=== PATIENT | female | born 1945 | race Caucasian/White ===

== ENCOUNTER 2020-10-10 04:08 | Inpatient (IN) | payer MEDICARE, OTHER, SELFPAY ==
[2020-10-10] VITALS (17 sets, daily range): BP systolic 104–156; BP diastolic 43–82; PULSE 60–90; RESP 15–20; TEMP 36.7–37.1; O2SAT 95–97; BMI 26.7
--- NOTE | ~2020-10-10 | CT_ITS ---
EXAMINATION: CT ABDOMEN AND PELVIS WITHOUT CONTRAST CLINICAL INFORMATION: Diffuse abdominal pain COMPARISON: None TECHNIQUE: Multidetector volumetric imaging was performed from the superior aspect of the liver through the pubic symphysis. Sagittal and coronal reformatted images were obtained on the technologist's workstation. This CT examination was performed using dose optimization techniques as appropriate, variously including the following: *Automated exposure control *Adjustment of mA and/or kV according to patient size (this includes techniques or standardized protocols for targeted exams where dose is matched to indication/reason for exam; i.e. extremities or head) *Use of iterative reconstruction technique DLP: 485 mGy-cm FINDINGS: LUNG BASES: The visualized lung bases are unremarkable. LIVER, GALLBLADDER, AND BILIARY TREE: The liver is normal in size, shape, and attenuation. No focal hepatic lesion or biliary ductal dilatation is present. The gallbladder is unremarkable with no evidence of radiopaque gallstones, gallbladder wall thickening, or obvious pericholecystic inflammatory changes. PANCREAS: Unremarkable. SPLEEN: Unremarkable. ADRENAL GLANDS: Unremarkable. KIDNEYS AND URETERS: The kidneys are normal in size, shape, and attenuation. No hydronephrosis, hydroureter, or calculi seen. No perinephric stranding. BLADDER: Unremarkable. GASTROINTESTINAL TRACT: The stomach is unremarkable. There is a portion of small bowel which is dilated mildly with fluid-filled appearance. This leads to an area of fecalization in the right lower quadrant transitioning at the site of the inguinal hernia. Much of the colon is decompressed. ABDOMINAL WALL: Right inguinal region hernia containing small bowel which appears obstructive. LYMPH NODES: Normal. VASCULAR: Normal caliber aorta with mild atherosclerotic calcification. PELVIC VISCERA: Calcifications at the uterine fundus likely associated with fibroids. No adnexal mass. OSSEOUS STRUCTURES: No acute or suspicious osseous abnormality. Mild degenerative changes throughout the spine. CT/CT abdomen pelvis wo con IMPRESSION: Small bowel obstruction with lead point involving the right inguinal hernia. Decompression of the colon.
--- NOTE | 2020-10-10 05:15 | ECG_ITS ---
Test Reason : ABD PAIN Blood Pressure : / mmHG Vent. Rate : 073 BPM Atrial Rate : 073 BPM P-R Int : 150 ms QRS Dur : 082 ms QT Int : 396 ms P-R-T Axes : 061 026 037 degrees QTc Int : 436 ms Normal sinus rhythm Normal ECG When compared with ECG of 25-DEC-2015 06:15, Premature atrial complexes are no longer Present Nonspecific T wave abnormality, improved in Inferior leads Nonspecific T wave abnormality, improved in Anterolateral leads Referred By: Peyton Fuentes Electronically Signed By:Zenon Paige
--- NOTE | 2020-10-10 05:16 | ED.ABDPAIN ---
HPI - Abdominal Pain General Chief Complaint: Abdominal Pain Stated Complaint: abd pain Time Seen by Provider: 10/10/20 05:06 Source: patient Mode of arrival: ambulatory Limitations: no limitations History of Present Illness HPI narrative: Patient comes to the emergency room complaining of abdominal pain. Patient states that around 12-13 hours ago, she started complaining of diffuse abdominal pain. Patient states the pain radiates throughout the abdomen. She also noticed that she has not passed gas for several hours. Patient denies vomiting or diarrhea. Patient states that around Chelle time, she noticed that she had a right inguinal hernia. Patient states most of the time she is able to reduce it. However, since yesterday, patient has been unable to reduce it. Patient states that the pain is intense, but does feel uncomfortable. MD elicited complaint: abdominal pain Related Data Home Medications Medication Instructions Recorded Confirmed clonazepam 1 tab PO BID PRN 10/10/20 10/10/20 dorzolamide-timolol 1 drp OPHTHALMIC (EYE) BID 10/10/20 10/10/20 lovastatin 1 tab PO DAILY 10/10/20 10/10/20 omeprazole 1 cap PO DAILY 10/10/20 10/10/20 prednisolone acetate 1 drp QID 10/10/20 10/10/20 Allergies Allergy/AdvReac Type Severity Reaction Status Date / Time nitroglycerin [NITROGLYCERIN] Allergy Severe SEVERE Verified 10/10/20 06:30 BRADYCARDIA/HYPOTENSION iodine Allergy Unknown Hypotension Verified 10/10/20 06:30 Review of Systems Review of Systems Constitutional : No Weight loss, No Fever, No Chills, No Night Sweats, No Fatigue, No Malaise ENT/Mouth : No Hearing loss, No Ear Pain, No Nasal Congestion, No Sinus Pain, No Hoarseness, No sore throat, No Rhinorrhea, No Swallowing Difficulty Eyes: No Eye Pain, No Swelling, No Redness, No Foreign Body, No Discharge, No Vision Changes Cardiovascular : No Chest Pain, No SOB, No Dyspnea on Exertion, No Orthopnea, No Edema, No Palpitations Respiratory : No Cough, No Sputum, No Wheezing, No Smoke Exposure, No Dyspnea Gastrointestinal : No Nausea, No Vomiting, No Diarrhea, No Constipation, complaining of diffuse abdominal pain, No Hematochezia, No Melena, + obstipation Genitourinary : no irregular bleeding, No Dysuria, No Urinary Frequency, No Hematuria, No Urinary Incontinence, No Urgency, No Flank Pain, No Urinary Flow Changes, No Hesitancy Musculoskeletal : No joint pain, No Myalgias, No Joint Swelling Skin : No Skin Lesions, No rash Neuro : No Weakness, No Numbness, No Paresthesias, No Loss of Consciousness, No Dizziness, No Headache Psych : No Anxiety/Panic, No Depression, No SI/HI/AH/VH, No Social Issues, Heme/Lymph: No Bruising, No Bleeding,No Lymphadenopathy Endocrine : No Polyuria, No Polydipsia, No Temperature Intolerance Physical Exam Vital Signs: Vital Signs: Last Vital Signs Temp 98.4 F 10/10/20 05:33 Pulse 60 10/10/20 06:00 Resp 16 10/10/20 06:30 BP 120/63 10/10/20 06:00 Pulse Ox 96 10/10/20 06:00 Body Mass Index 26.7 Appearance: Alert. Oriented X3. No acute distress. Eyes: Pupils equal, round and reactive to light. ENT: Pharynx normal. Neck: Normal inspection. Neck supple. No lymph nodes noted. No crepitus CVS: Normal heart rate and rhythm. Pulses normal. Normal S1 and S2 Respiratory: No respiratory distress. Breath sounds normal. No Wheezing. No rales Abdomen: Soft , no rigidity, pain to palpation in the right inguinal area, palpable mass/fullness present in the right suprapubic/right inguinal area, mild to moderate discomfort with palpation, not reducible Skin: Skin warm and dry. Normal skin color. Normal skin turgor. Extremities: No lower extremity edema. No lower extremity edema. No Lacerations. No Rash Neuro: Oriented X 3. No motor deficit. No sensory deficit. Moving all extermities. No slurred speech. Course Course Course Narrative: Discussed the CT scan with the patient, she does have a small bowel obstruction involving the right inguinal hernia. I discussed with the patient that we will consult Dr. Kendrick from surgery. Patient will be admitted. MDM - Abdominal Pain MDM Narrative Medical decision making narrative: Patient had a vasovagal episode, blood pressure dropped to the 60s systolic when patient was getting blood work done. Patient recuperated in Trendelenburg position, patient is now asymptomatic. Lab Data Result diagrams: 10/10/20 06:06 10/10/20 06:06 Labs: Lab Results 10/10/20 10/10/20 Range/Units 06:06 06:06 WBC 7.4 (4.8-10.8) X10*3/uL RBC 4.39 (4.20-5.50) X10*6/uL Hgb 13.3 (12.0-16.0) g/dl Hct 38.8 (37-47) % MCV 88.4 (80-98) fL MCH 30.3 (27.0-33.0) pg MCHC 34.3 (31.0-35.0) g/dl RDW 11.8 (11.0-16.0) % Plt Count 285 (160-400) X10*3/uL MPV 9.3 L (9.4-12.3) fL Immature Gran % (Auto) 0.3 (0.0-0.4) % Neut % (Auto) 74.3 H (45-73) % Lymph % (Auto) 17.1 L (20-40) % [place] % (Auto) 7.2 (2-11) % Eos % (Auto) 0.8 (0-4) % Baso % (Auto) 0.3 (0-2) % Lymph # (Auto) 1.3 (1.2-4.9) X10*3/uL [place] # (Auto) 0.5 (0.1-1.2) X10*3/uL Eos # (Auto) 0.1 (0.0-0.4) X10*3/uL Baso # (Auto) 0.0 (0.0-0.2) X10*3/uL Abs Immat Gran (auto) 0.02 (0.00-0.03) X10*3/uL Absolute Neuts (auto) 5.5 (2.0-8.3) X10*3/uL Absolute Nucleated RBC 0.000 (0.0-0.012) X10*3/uL Nucleated RBC % (auto) 0.0 (0.0-0.2) /100WBC Sodium 138 (135-145) mmol/L Potassium 4.5 (3.3-5.1) mmol/L Chloride 106 (96-108) mmol/L Carbon Dioxide 22 (22-29) mmol/L Anion Gap 15 (12-20) BUN 10 (9-16) mg/dL Creatinine 0.69 (0.5-1.4) mg/dL Estim Creat Clear Calc 56.2 Estimated GFR > 60 Random Glucose 135 H (60-115) mg/dL Calcium 9.3 (8.4-10.2) mg/dL Total Bilirubin 0.5 (0.0-1.0) mg/dL Direct Bilirubin 0.2 (0.0-0.5) mg/dL AST 32 H (5-31) U/L ALT 18 (0-31) U/L Alkaline Phosphatase 66 (39-117) U/L Total Protein 6.5 (6.5-8.0) g/dL Albumin 3.9 (3.5-5.0) g/dL Lipase 29 (8-78) U/L ECG Data Attestation: I personally reviewed and interpreted this ECG as follows: (Sinus rhythm, heart rate 73, ST segment depressions or elevations, QTC 436. EHG#2: Sinus rhythm, heart rate 62, no ST segment depressions or elevations, QTC 430) Discharge Plan Discharge Clinical Impression: Small bowel obstruction Inguinal hernia Qualifiers: Obstruction and gangrene presence: with obstruction but without gangrene Laterality: unilateral Recurrence: not specified as recurrent Qualified Code(s): K40.30 - Unilateral inguinal hernia, with obstruction, without gangrene, not specified as recurrent Patient Disposition: Admitted As Inpatient [facility] Past Medical History Medical History (Updated 10/10/20 @ 07:25 by Peyton Fuentes MD) Anxiety GERD (gastroesophageal reflux disease) Glaucoma Hiatal hernia IBS (irritable bowel syndrome) Macular degeneration Surgical History (Updated 10/10/20 @ 04:23 by Kassi Horner) History of reverse total replacement of right shoulder joint History of right shoulder replacement Social History Social History Smoking Status: Unknown if ever smoked Use of substances other than those prescribed or required for medical reasons: No Advance Directives: No
--- NOTE | 2020-10-10 06:07 | ECG_ITS ---
Test Reason : REPEAT Blood Pressure : / mmHG Vent. Rate : 062 BPM Atrial Rate : 062 BPM P-R Int : 150 ms QRS Dur : 076 ms QT Int : 424 ms P-R-T Axes : 071 036 061 degrees QTc Int : 430 ms Normal sinus rhythm Nonspecific T wave abnormality Abnormal ECG When compared with ECG of 10-OCT-2020 05:28, No significant change was found Referred By: Peyton Fuentes Electronically Signed By:Zenon Paige
[2020-10-10 06:15] LABS: Basophils Percent Auto 0.3 % (0-2); Eosinophils Absolute Auto 0.1 X10*3/uL (0.0-0.4); Eosinophils Percent Auto 0.8 % (0-4); Hematocrit 38.8 % (37-47); Hemoglobin 13.3 g/dl (12.0-16.0); Imm Gran Abs Auto 0.02 X10*3/uL (0.00-0.03); Imm Gran Pct Auto 0.3 % (0.0-0.4); Lymphocytes Absolute Auto 1.3 X10*3/uL (1.2-4.9); Lymphocytes Percent Auto 17.1 % (20-40); MANUAL DIFF FLAG NO; Mean Corpuscular HGB Conc 34.3 g/dl (31.0-35.0); Mean Corpuscular Hemoglobin 30.3 pg (27.0-33.0); Mean Corpuscular Volume 88.4 fL (80-98); Mean Platelet Volume 9.3 fL (9.4-12.3); Monocytes Absolute Auto 0.5 X10*3/uL (0.1-1.2); Monocytes Percent Auto 7.2 % (2-11); Neutrophils Absolute Auto 5.5 X10*3/uL (2.0-8.3); Neutrophils Percent Auto 74.3 % (45-73); Platelet Count 285 X10*3/uL (160-400); Red Blood Count 4.39 X10*6/uL (4.20-5.50); Red Cell Distribution Width 11.8 % (11.0-16.0); White Blood Count 7.4 X10*3/uL (4.8-10.8)
[2020-10-10] MEDS: Morphine Sulfate 2 MG/ML CARTRIDGE IVPUSH ×2 (06:30→08:48)
[2020-10-10] MEDS: ondansetron HCL 4 MG/2 ML VIAL IVPUSH (06:31)
[2020-10-10 06:39] LABS: Alanine Aminotransferase 18 U/L (0-31); Albumin Level 3.9 g/dL (3.5-5.0); Alkaline Phosphatase 66 U/L (39-117); Anion Gap 15 (12-20); Aspartate Amino Transferase 32 U/L (5-31); Bilirubin Direct 0.2 mg/dL (0.0-0.5); Bilirubin Total 0.5 mg/dL (0.0-1.0); Blood Urea Nitrogen 10 mg/dL (9-16); Calcium 9.3 mg/dL (8.4-10.2); Carbon Dioxide 22 mmol/L (22-29); Chloride 106 mmol/L (96-108); Creatinine Clr Calc Pharmacy 56.2; Estimated Glomerular Filt Rate > 60; Glucose Random 135 mg/dL (60-115); Lipase 29 U/L (8-78); Potassium 4.5 mmol/L (3.3-5.1); Sodium 138 mmol/L (135-145); Total Protein 6.5 g/dL (6.5-8.0)
--- NOTE | 2020-10-10 07:19 | PC.NURSE ---
pt's son-in-law chris joe called [facility] [place] and dr. cabrera spoke with him, updating him on pt's status.
--- NOTE | 2020-10-10 08:00 | PC.NURSE ---
dr. leblanc at bedside, pt aware of plan of care for surgery today.
--- NOTE | 2020-10-10 08:18 | PM.HPGS ---
History of Present Illness History of Present Illness Date of Service: 10/10/20 Chief complaint: abd pain Narrative: Karen Vickers is a 75 year old female presenting with complaints of abdominal pain in the lower abdomen which began yesterday afternoon associated with a burning discomfort in the upper abdomen and a painful lump in the right groin. She has a known history of a right inguinal hernia which was reducible and 1st identified around Chelle time. The lump is now more prominent and not reducible. She reports having difficulty passing gas or moving her bowels. She denies a previous history of abdominal surgeries. She presented to the emergency department was noted to be tender in the right groin with a palpable lump. CT of the abdomen pelvis confirmed a right inguinal hernia with a loop of ileum which appears to be lead point of a small-bowel obstruction. Distal bowel/colon is decompressed beyond this. Review of Systems Review of Systems: Yes all other systems are reviewed and are negative Constitutional: Constitutional: Denies fatigue, Denies fever(s), Denies headache(s) and Denies weakness ENT: Denies dysphagia and Denies headache(s) Cardiovascular: Cardiovascular: Denies chest pain, Denies irregular heart rhythm, Denies palpitations and Denies dyspnea Respiratory: Respiratory: Denies chest congestion, Denies dyspnea and Denies wheezing Gastrointestinal: Gastrointestinal: Reports abdominal pain (Right groin as noted in HPI), Denies melena, Reports constipation, Reports GI cramping, Denies dysphagia and Reports nausea Musculoskeletal: Comments: Right shoulder surgery Neurologic: Denies headache(s) and Denies weakness Endocrine: Endocrine: Denies fatigue and Denies palpitations Hematologic/Lymphatic: Hematologic/Lymphatic: Denies easy bleeding, Denies easy bruising and Denies lymphadenopathy Allergic/Immunologic: Allergic/Immunologic: Denies wheezing PMF Past Medical History Medical History Anxiety GERD (gastroesophageal reflux disease) Glaucoma Hiatal hernia IBS (irritable bowel syndrome) Macular degeneration Surgical History Surgical History History of reverse total replacement of right shoulder joint History of right shoulder replacement Social History Social History Smoking Status: Unknown if ever smoked Use of substances other than those prescribed or required for medical reasons: No Advance Directives: No Meds Allergies Allergy/AdvReac Type Severity Reaction Status Date / Time nitroglycerin [NITROGLYCERIN] Allergy Severe SEVERE Verified 10/10/20 06:30 BRADYCARDIA/HYPOTENSION iodine Allergy Unknown Hypotension Verified 10/10/20 06:30 Home Medications Medication Instructions Recorded Confirmed Last Taken Type clonazepam 1 tab PO BID PRN 10/10/20 10/10/20 Unknown History dorzolamide-timolol 1 drp OPHTHALMIC (EYE) BID 10/10/20 10/10/20 Unknown History lovastatin 1 tab PO DAILY 10/10/20 10/10/20 Unknown History omeprazole 1 cap PO DAILY 10/10/20 10/10/20 Unknown History prednisolone acetate 1 drp QID 10/10/20 10/10/20 Unknown History Physical Exam Vital Signs: Vital Signs: Last Vital Signs Temp 98.4 F 10/10/20 05:33 Pulse 60 10/10/20 06:00 Resp 16 10/10/20 06:30 BP 120/63 10/10/20 06:00 Pulse Ox 96 10/10/20 06:00 Body Mass Index 26.7 Const: General: cooperative, healthy appearing, comfortable and no acute distress Eyes: Sclerae: sclerae normal EOM: EOMs intact bilaterally Neck: Neck: Yes full ROM and Yes no JVD Resp: Other: Breathing comfortably on room air, no respiratory distress, no wheezing or rales Cardio: Jugular venous distension: no JVD Rate: regular rate Rhythm: regular rhythm GI: Other: Soft, minimally distended, normal bowel sounds, tender lump in the right groin which is non reducible consistent with a right inguinal hernia with incarceration, no rebound, no guarding, no rigidity. Abdomen image: 1. Incarcerated right inguinal hernia Skin: General skin exam: no rashes or lesions noted Extrem: General: Yes no clubbing, cyanosis or edema Results Results Labs: Short CBC 10/10/20 Range/Units 06:06 WBC 7.4 (4.8-10.8) X10*3/uL Hgb 13.3 (12.0-16.0) g/dl Hct 38.8 (37-47) % Plt Count 285 (160-400) X10*3/uL BMP 10/10/20 06:06 Sodium 138 Potassium 4.5 Chloride 106 Carbon Dioxide 22 BUN 10 Creatinine 0.69 Calcium 9.3 Liver Function 10/10/20 Range/Units 06:06 Total Bilirubin 0.5 (0.0-1.0) mg/dL Direct Bilirubin 0.2 (0.0-0.5) mg/dL AST 32 H (5-31) U/L ALT 18 (0-31) U/L Alkaline Phosphatase 66 (39-117) U/L Albumin 3.9 (3.5-5.0) g/dL Assessment and Plan (1) Incarcerated right inguinal hernia: Status: Acute Patient presents with a small-bowel obstruction secondary to a right inguinal hernia which is incarcerated. This is been present for least 12 hours and warrants an emergent repair. I recommended an open repair of the right inguinal hernia with mesh to be performed this morning. After a discussion of the procedure, risks, and alternatives, she consents to the surgery. Also discussed the findings and plan with her son-in-law, healthcare proxy, Dr. Rajan Husain who also consents to the procedure. She has been added onto the operative schedule for this morning. (2) Small bowel obstruction: Status: Acute
--- NOTE | 2020-10-10 08:44 | PC.NURSE ---
nurse to nurse given to natalee (rn), pt aware of plan of care for surgery this am.
[2020-10-10 08:53] LABS: Glucose Urine UA NEG (NEG); Leukocyte Esterase Urine NEG (NEG); Nitrite Urine NEG (NEG); PH 7.5 (5.0-8.0); Specific Gravity - Urine 1.015 (1.005-1.025); Urine Blood NEG (NEG); Urine Ketones NEG (NEG); Urine Protein NEG (NEG-TRACE)
[2020-10-10 08:59] LABS: Appearance Urine CLEAR; Color Urine STRAW
--- NOTE | 2020-10-10 09:00 | PC.NURSE ---
PT TRANSFERED TO THE OR VIA STRETCHER, REPORT GIVEN EARLIER TO TANGELA (SADAF).
[2020-10-10 09:04] LABS: RBC Urine 0-2 /HPF (0); Squamous Epithelial Cell Urine TRACE /LPF; WBC Urine 0-2 /HPF (0-4)
--- NOTE | 2020-10-10 09:15 | MHC.SHP ---
Pre-Procedural Eval Section A The patient is an INPATIENT: Yes The History & Physical has been completed within 30 days and I have reviewed it.: Yes Section B Chief Complaint: abd pain Allergies: Allergies Allergy/AdvReac Type Severity Reaction Status Date / Time nitroglycerin [NITROGLYCERIN] Allergy Severe SEVERE Verified 10/10/20 06:30 BRADYCARDIA/HYPOTENSION iodine Allergy Unknown Hypotension Verified 10/10/20 06:30 Plan Diagnosis/Plan: Unchanged I have reviewed the history and physical and performed a pertinent physical examination on my patient. No changes have occurred unless specified.
--- NOTE | 2020-10-10 09:15 | W.PM.OPN ---
Operative Note Operative Note Date of Service: 10/10/20 Narrative: Preoperative diagnosis: Incarcerated right inguinal hernia Postoperative diagnosis: Incarcerated right femoral hernia Procedure: Repair of incarcerated right inguinal hernia with mesh Surgeon: Get Kendrick MD Assembly Line Machine Operator: None Anesthesia: General LMA Indications for procedure: 75-year-old female patient presenting with a painful lump in the right groin which is non reducible and developed approximately 12 hours prior. Patient presented to the emergency department with complaints of abdominal pain nausea and vomiting. CT of the abdomen and pelvis confirmed an incarcerated right inguinal hernia resulting in a small-bowel obstruction. She presents for emergency repair of the right inguinal hernia with mesh. Operative findings: Incarcerated right femoral hernia with a loop of terminal ileum with a large serous fluid collection. Bowel was not ischemic or necrotic. Specimen: None Estimated blood loss: 10 mL Complications: None Procedure details: Patient was brought to the OR and placed in a supine position. After administering general anesthesia the patient's abdomen was prepped with ChloraPrep and draped in a sterile fashion. A surgical time-out was called and consent confirmed. Patient received preoperative antibiotics and Venodyne boots were in place. Local anesthesia consisting of 0.25% Sensorcaine with epinephrine was then infiltrated in the right groin over the inguinal ligament. Incision was then carried down through subcutaneous tissue past Komal's fashion up to the external oblique aponeurosis. A large hernia sac was identified and noted to be located below the inguinal ligament. The sac was then entered and a large serous fluid collection drained. A loop of incarcerated small bowel was identified within the hernia sac. This was felt to be viable with no evidence of necrosis or ischemia. The bowel was reduced into the abdominal cavity. A large hernia sac was then dissected free from the surrounding subcutaneous tissue. The sac was closed using a running 0 Polysorb suture. The sac was then reduced into the abdominal cavity. The femoral space was then closed using interrupted 1 Tycron sutures to reapproximate the inguinal ligament to Simba's ligament. A total of 2 sutures were required to close the opening. The wounds were checked for hemostasis with electrocautery. Wounds were then irrigated with saline solution and suctioned dry. Additional local anesthesia was placed into the subcutaneous tissue at this time. Komal's fascia and dermis were then reapproximated using interrupted 3-0 Polysorb sutures. Skin was then closed using a running subcuticular 4 0 Polysorb suture. Steri-Strips 2 x 2 gauze and Tegaderm were then applied. Patient tolerated the procedure well. Sponge, instrument, needle counts reported as correct. The patient was transferred to PACU in stable condition.
--- NOTE | 2020-10-10 09:50 | HO.ANESPROP2 ---
[facility] Active Problems Active Problems: All Active Problems (Updated 10/10/20 @ 09:30 by Renato Schmitt) Incarcerated right inguinal hernia (Acute) Inguinal hernia (Acute) Small bowel obstruction (Acute) Past Medical History Medical History Anxiety GERD (gastroesophageal reflux disease) Glaucoma Hiatal hernia IBS (irritable bowel syndrome) Macular degeneration Surgical History Surgical History History of reverse total replacement of right shoulder joint History of right shoulder replacement Social History Social History Smoking Status: Unknown if ever smoked Use of substances other than those prescribed or required for medical reasons: No Advance Directives: No Meds Allergies Allergy/AdvReac Type Severity Reaction Status Date / Time nitroglycerin [NITROGLYCERIN] Allergy Severe SEVERE Verified 10/10/20 06:30 BRADYCARDIA/HYPOTENSION iodine Allergy Unknown Hypotension Verified 10/10/20 06:30 Active Medications: Current Medications Generic Name Dose Route Start Last Admin Trade Name Freq PRN Reason Stop Dose Admin Lactated Ringer's 1,000 mls @ 100 mls/hr 10/10/20 08:30 Lr IVCONT .Q10H [facility] Home Medications Medication Instructions Recorded Confirmed Last Taken Type clonazepam 1 tab PO BID PRN 10/10/20 10/10/20 Unknown History dorzolamide-timolol 1 drp OPHTHALMIC (EYE) BID 10/10/20 10/10/20 Unknown History lovastatin 1 tab PO DAILY 10/10/20 10/10/20 Unknown History omeprazole 1 cap PO DAILY 10/10/20 10/10/20 Unknown History prednisolone acetate 1 drp QID 10/10/20 10/10/20 Unknown History Exam Exam Date and Time: October 10, 2020 0950 Height,Weight and Vital Signs: Height 5 ft Weight 62.142 kg Last Vital Signs Temp 98.6 F 10/10/20 08:27 Pulse 88 10/10/20 08:51 Resp 16 10/10/20 08:51 BP 133/71 10/10/20 08:51 Pulse Ox 97 10/10/20 08:51 Pertinent Lab Results Pertinent Lab Results: Laboratory Tests 10/10/20 10/10/20 10/10/20 06:06 06:06 08:34 WBC 7.4 RBC 4.39 Hgb 13.3 Hct 38.8 MCV 88.4 MCH 30.3 MCHC 34.3 RDW 11.8 Plt Count 285 MPV 9.3 L Immature Gran % (Auto) 0.3 Neut % (Auto) 74.3 H Lymph % (Auto) 17.1 L [place] % (Auto) 7.2 Eos % (Auto) 0.8 Baso % (Auto) 0.3 Lymph # (Auto) 1.3 [place] # (Auto) 0.5 Eos # (Auto) 0.1 Baso # (Auto) 0.0 Abs Immat Gran (auto) 0.02 Absolute Neuts (auto) 5.5 Absolute Nucleated RBC 0.000 Nucleated RBC % (auto) 0.0 Sodium 138 Potassium 4.5 Chloride 106 Carbon Dioxide 22 Anion Gap 15 BUN 10 Creatinine 0.69 Estim Creat Clear Calc 56.2 Estimated GFR > 60 Random Glucose 135 H Calcium 9.3 Total Bilirubin 0.5 Direct Bilirubin 0.2 AST 32 H ALT 18 Alkaline Phosphatase 66 Total Protein 6.5 Albumin 3.9 Lipase 29 Urine Color STRAW Urine Appearance CLEAR Urine pH 7.5 Ur Specific [place] 1.015 Urine Protein NEG Urine Glucose (UA) NEG Urine Ketones NEG Urine Blood NEG Urine Nitrite NEG Ur Leukocyte Esterase NEG Urine RBC 0-2 Urine WBC 0-2 Ur Squamous Epith Cells TRACE Urine Bacteria NONE Airway Mallampati Class: II TM Dist: >3cm Denture: Upper
[2020-10-10] MEDS: Dextrose 5 % and Lactated Ring 1,000 ML 80 ML IVCONT ×2 (12:01→23:27)
[2020-10-10 13:19] LABS: COVID-19 Test Negative (Negative); IDNOW Serial# 9DD0AD1C
[2020-10-10] MEDS: Dorzolamide/Timolo 2.23%/0.68% 10 ML DRBTL 1 DROP EYE-BOTH (20:44)
[2020-10-10] MEDS: clonazePAM 0.5 MG TABLET PO (20:48)
[2020-10-10] MEDS: 0.9 % Sodium Chloride Flush 3 ML SYRINGE IVFLUSH (23:27)
[2020-10-11 03:36] VITALS: BP 105/54; PULSE 75; RESP 18; TEMP 37; O2SAT 97
[2020-10-11] MEDS: Omeprazole 20 MG CAPSULE.DR PO (05:34)
[2020-10-11] MEDS: Acetaminophen 325 MG TABLET 650 MG PO (06:40)
[2020-10-11] MEDS: Dorzolamide/Timolo 2.23%/0.68% 10 ML DRBTL 1 DROP EYE-BOTH (07:41)
[2020-10-11 07:44] VITALS: BP 122/64; PULSE 73; RESP 18; TEMP 36.9; O2SAT 98
--- NOTE | 2020-10-11 08:22 | PM.PNGS ---
Subjective Subjective Date of Service: 10/11/20 Interval history: Patient is awake and alert, sitting up in bed. She reports feeling much improved and denies significant inguinal pain. She feels ready for discharge to home. Physical Exam Vital Signs: Vital Signs: Last Vital Signs Temp 98.4 F 10/11/20 07:44 Pulse 73 10/11/20 07:44 Resp 18 10/11/20 07:44 BP 122/64 10/11/20 07:44 Pulse Ox 98 10/11/20 07:44 Body Mass Index 26.7 Const: General: cooperative, healthy appearing, comfortable, no acute distress, well developed, alert and awake Resp: Effort & Inspection: normal respiratory effort GI: Inspection: Yes normal to inspection Palpation (GI): Soft to palpation Percussion: Yes normal to percussion Auscultation: normal bowel sounds Skin: General skin exam: no rashes or lesions noted Extrem: General: Yes no clubbing, cyanosis or edema Progress Note: A&P Assessment and plan (1) Incarcerated femoral hernia: Status: Acute Assessment and Plan: Patient is postop day 1 status post repair of a femoral hernia. She tolerated the procedure well and her wounds are healing nicely. She feels much improved this morning is ready for discharge to home. Discharge instructions are to avoid heavy lifting greater than 10 lb for the next month. She may resume regular diet. She should follow up my office in 1 week for wound check. She should call sooner for problems. Fall Risk Details Current Medications: Current Medications Generic Name Dose Route Start Last Admin Trade Name Sara PRN Reason Stop Dose Admin Acetaminophen 650 mg 10/10/20 11:14 10/11/20 06:40 Acetaminophen 325 Mg Tablet PO 650 mg Q6H PRN Administration Pain, Mild (Pain Scale 1-3) Clonazepam 0.5 mg 10/10/20 11:14 10/10/20 20:48 Clonazepam 0.5 Mg Tablet PO 0.5 mg BID PRN Administration Anxiety Dorzolamide/Timolol 1 drop 10/10/20 21:00 10/11/20 07:41 Dorzolamide/Timolo 2.23%/0.68% 10 Ml Drbtl EYE-BOTH 1 drop BID DOTTIE Administration Dextrose/Lactated Ringer's 1,000 mls @ 80 mls/hr 10/10/20 11:14 10/10/20 23:27 D5lr IVCONT 80 mls/hr .[id number] DOTTIE Administration Morphine Sulfate 2 mg 10/10/20 11:14 Morphine Sulfate 2 Mg/Ml Cartridge IVPUSH Q4H PRN Pain, Severe (Pain Scale 7-10) Omeprazole 20 mg 10/11/20 06:30 10/11/20 05:34 Omeprazole 20 Mg Capsule.Dr PO 20 mg DAILY@0630 DOTTIE Administration Ondansetron HCl 4 mg 10/10/20 11:14 Ondansetron Hcl 4 Mg/2 Ml Vial IVPUSH Q8H PRN Nausea and Vomiting Oxycodone HCl 5 mg 10/10/20 11:14 Oxycodone Hcl Immed Release 5 Mg Tablet PO Q4H PRN Pain, Moderate (Pain Scale 4-6 Pravastatin Sodium 20 mg 10/11/20 21:00 Pravastatin Sodium 20 Mg Tablet PO BEDTIME DOTTIE Prednisolone Acetate 1 drop 10/10/20 13:00 10/11/20 07:39 Prednisolone Acetate 1 % Oph Susp 5 Ml Drpbtl EYE-BOTH Not Given QID DOTTIE Sodium Chloride 3 ml 10/10/20 16:00 10/11/20 07:41 0.9 % Sodium Chloride Flush 3 Ml Syringe IVFLUSH Not Given QSHIFT DOTTIE Time Spent With Patient Time: Total time spent is greater than 50% in coordination of care (as documented) at patient's floor/unit and/or counseling patient: Time with patient: 15 - 24 minutes
--- NOTE | 2020-10-11 08:22 | PM.DS ---
DS: Providers Provider Date of Service: 10/11/20 Date of admission: 10/10/20 11:14 Primary care physician: Dillon Gutierrez MD Attending physician on admission: Get Kendrick DS: Diagnosis Discharge Diagnosis (1) Incarcerated femoral hernia: Status: Acute DS: Medications Discharge Medications Home Medications: Home Medications Medication Instructions Recorded Confirmed clonazepam 1 tab PO BID PRN 10/10/20 10/10/20 dorzolamide-timolol 1 drp OPHTHALMIC (EYE) BID 10/10/20 10/10/20 lovastatin 1 tab PO DAILY 10/10/20 10/10/20 omeprazole 1 cap PO DAILY 10/10/20 10/10/20 prednisolone acetate 1 drp QID 10/10/20 10/10/20 Previous Rx's Medication Instructions Recorded hydrocodone-acetaminophen 1 tab PO Q6H PRN #10 tab 10/11/20 DS: Summary Hospital Course Hospital Course: Karen Vickers is a 75 year old female presenting with complaints of abdominal pain in the lower abdomen which began 10/09/2020 in the afternoon associated with a burning discomfort in the upper abdomen and a painful lump in the right groin. She has a known history of a right inguinal hernia which was reducible and 1st identified around [place] time. The lump is now more prominent and not reducible. She reports having difficulty passing gas or moving her bowels. She denies a previous history of abdominal surgeries. She presented to the emergency department was noted to be tender in the right groin with a palpable lump. CT of the abdomen pelvis confirmed a right inguinal hernia with a loop of ileum which appears to be lead point of a small-bowel obstruction. Distal bowel/colon is decompressed beyond this. On examination the patient was found to have a non reducible tender lump in the right groin felt to be consistent with an incarcerated inguinal hernia. Decision was made to take her to the operating room for repair of this incarcerated hernia. She was taken to the OR on the day of admission 10/10/2020. Operative findings were consistent with an incarcerated femoral hernia with a large the surrounding fluid collection. This was repaired primarily without mesh. The patient remained hemodynamically stable throughout the surgery and postoperatively. She was observed in PACU, then observed as an extended recovery. On postoperative day 1 patient felt much improved with only minor discomfort in the right groin at the area of the incision. She was able to get up and ambulate independently and felt study in her ambulation. She tolerated a regular diet without nausea or vomiting. Patient is ready for discharge to home. Her daughter will be picking her up and will stay with her during her recovery. I have asked her to avoid lifting greater than 10 lb for the next month. She may resume a regular diet. She may remove the dressings from the right groin after approximately 3 days. She should return to my office in approximately 1 week for wound examination. She was encouraged to call for fever, chills, nausea, vomiting, increased pain, redness, discharge from the incision, or other concerns. Time Spent with Patient Time attestation: Total time spent providing and/or coordinating discharge services: Discharge coordination time: Less than 30 minutes Physical Exam Vital Signs: Vital Signs: Last Vital Signs Temp 98.4 F 10/11/20 07:44 Pulse 73 10/11/20 07:44 Resp 18 10/11/20 07:44 BP 122/64 10/11/20 07:44 Pulse Ox 98 10/11/20 07:44 Body Mass Index 26.7 Const: General: cooperative, healthy appearing, comfortable, no acute distress, well developed, alert and awake Resp: Effort & Inspection: normal respiratory effort, no stridor and not tachypneic GI: Inspection: Yes normal to inspection Palpation (GI): Soft to palpation and nontender Percussion: Yes normal to percussion Auscultation: normal bowel sounds Skin: General skin exam: no rashes or lesions noted and dry skin Rashes: no rashes Extrem: General: Yes normal to inspection and Yes no clubbing, cyanosis or edema Psych: Mental Status: mental status grossly normal DS: Data Data Completed and Pending Labs on day of discharge: Laboratory Results - last 24 hr 10/10/20 10/10/20 08:34 12:50 Urine Color STRAW Urine Appearance CLEAR Urine pH 7.5 Ur Specific [place] 1.015 Urine Protein NEG Urine Glucose (UA) NEG Urine Ketones NEG Urine Blood NEG Urine Nitrite NEG Ur Leukocyte Esterase NEG Urine RBC 0-2 Urine WBC 0-2 Ur Squamous Epith Cells TRACE Urine Bacteria NONE COVID-19 ([facility]) Negative COVID-19 Clin Com See Note Discharge Plan Discharge Patient Disposition: Home, Self-Care Referrals: Dillon Gutierrez MD [Primary Care Provider] - Get Kendrick MD [Physician] - 1 Week Discharge Medications: New hydrocodone-acetaminophen 2.5-325 mg tablet 1 tab PO Q6H PRN (Reason: pain) Qty: 10 RF: 0 Continued clonazepam 0.5 mg tablet 1 tab PO BID PRN (Reason: Anxiety) RF: 0 prednisolone acetate 1 % drops,suspension 1 drp QID RF: 0 omeprazole 20 mg capsule,delayed release(DR/EC) 1 cap PO DAILY RF: 0 dorzolamide-timolol 22.3-6.8 mg/mL drops 1 drp ophthalmic (eye) BID RF: 0 lovastatin 20 mg tablet 1 tab PO DAILY RF: 0 Discharge Orders: Discharge Order (Routine); Ordered 10/11/20 Ordered By: Get Kendrick Diet: advance to usual diet Activity on Discharge: No heavy lifting Stand Alone Forms: Patient Portal Discharge page Activity Restrictions/Additional Instructions: If the incision area is tender, you may apply an ice pack for short intervals (No more than 20 minutes on, followed by at least 20 minutes off). After 24 hours you can apply warm compresses to the incision. Do not use creams, lotions, or topical antibiotics unless instructed to do so by your surgeon. These can cause infection or allergic reaction. Ok to shower. You do not have lynne closing your incision. Call Your Doctor If: -Your temperature exceeds 101.5? F -You experience excessive pain or swelling -You have an unexpected reaction to medication -You have excessive bleeding -You experience continued vomiting/nausea -Your incision begins to separate -Your incision shows signs of infection such as increased redness, swelling, excessive pain, drainage (light blood or clear fluid is normal) or heat Care Plan Goals: No heavy lifting > 10 pounds for one month. Follow up in office in one week. Health Concerns: Incarcerated femoral hernia right side Plan of Treatment: S/p repair of incarcerated right femoral hernia
== END 2020-10-11 11:50 | disposition home or self-care (01) | DRG 352 ==
LOC: HO.ED 09:23 → HO.S3 11:10
PROVIDERS: Admitting Provider Surgery; Emergency Provider Emergency Medicine; PCP Internal Medicine; Visit Provider Surgery
PROC: 0YU70JZ Supplement Right Femoral Region with Synthetic Substitute, Open Approach (ICD-10-PCS; CPT 49553; principal; 2020-10-10 08:30)
DX: K41.30 Unilateral femoral hernia, with obstruction, without gangrene, not specified as recurrent (principal); F41.9 Anxiety disorder, unspecified; F32.9 Major depressive disorder, single episode, unspecified; Z20.822 Contact with and (suspected) exposure to COVID-19; Z96.611 Presence of right artificial shoulder joint; Z87.891 Personal history of nicotine dependence; Z79.899 Other long term (current) drug therapy
CPT/HCPCS: 49553; 36415; 74176; 80048; 80076; 81001; 83690; 85025; 87635; 93005; 96374; 96375; 96376; 99024; 99284; 99285; J0690; J1100; J2250; J2270; J2405; J3010

== ENCOUNTER → 2020-10-21 10:23 | Outpatient (BNVA) | payer MEDICARE, OTHER, SELFPAY | PROVIDERS: PCP Internal Medicine; Visit Provider Surgery | DX: Z48.815 Encounter for surgical aftercare following surgery on the digestive system (principal); Z87.19 Personal history of other diseases of the digestive system | CPT/HCPCS: 99212 ==

== ENCOUNTER → 2020-11-25 10:15 | Outpatient (BNVA) | payer MEDICARE, OTHER, SELFPAY | PROVIDERS: PCP Internal Medicine; Visit Provider Surgery | DX: K41.30 Unilateral femoral hernia, with obstruction, without gangrene, not specified as recurrent (principal) | CPT/HCPCS: 99212 ==

== ENCOUNTER → 2021-04-06 08:18 | Outpatient (BNVA) | payer MEDICARE, OTHER, SELFPAY | PROVIDERS: PCP Internal Medicine; Referring Provider Internal Medicine; Visit Provider Surgery | DX: K41.91 Unilateral femoral hernia, without obstruction or gangrene, recurrent (principal) | CPT/HCPCS: 99212 ==

== ENCOUNTER 2021-05-27 10:08 | Outpatient (REF) | payer MEDICARE, OTHER, SELFPAY ==
--- NOTE | ~2021-05-27 | MM_ITS ---
EXAMINATION: MM SCREENING DIGITAL BREAST TOMOSYNTHESIS, BILATERAL CLINICAL INFORMATION: Screening. Asymptomatic. The lifetime risk of breast cancer based on the Tyrer-Cuzick Model is 3%. COMPARISON: Mammography: 04/28/2020, 02/20/2018, 01/14/2017 TECHNIQUE: Digital breast tomosynthesis is performed in both the craniocaudal and mediolateral oblique views along with computer-aided detection (CAD). Synthesized 2D images are generated from the tomosynthesis. FINDINGS: There are scattered areas of fibroglandular density (ACR BI-RADS breast composition Category b). Breast tissue composition borders on predominantly fatty. Stromal and fibroglandular densities are stable. There is no interval mass or architectural abnormality. There is an incidental dermal lesion overlying the posterior outer right breast. There are no abnormal calcifications. The axilla are unremarkable. MM/MM tomosynthesis screening BI IMPRESSION: No mammographic evidence of malignancy. ASSESSMENT: BI-RADS 2: Benign RECOMMENDATION: Routine annual mammography screening. This patient's information was entered into a reminder system with a target due date for their next mammogram.
== END 2021-05-27 10:09 | disposition home or self-care (01) ==
LOC: HO.MAMMO 10:08
PROVIDERS: Visit Provider Internal Medicine
DX: Z12.31 Encounter for screening mammogram for malignant neoplasm of breast (principal)
CPT/HCPCS: 77063; 77067

== ENCOUNTER 2022-03-11 09:51 | Outpatient (REF) | payer MEDICARE, OTHER, SELFPAY ==
[2022-03-11 10:36] LABS: MANUAL DIFF FLAG NO
[2022-03-11 10:42] LABS: Basophils Percent Auto 0.6 % (0-2); Eosinophils Absolute Auto 0.1 X10*3/uL (0.0-0.4); Eosinophils Percent Auto 2.6 % (0-4); Hematocrit 42.1 % (37.0-47.0); Hemoglobin 13.9 g/dl (12.0-16.0); Imm Gran Abs Auto 0.01 X10*3/uL (0.00-0.03); Imm Gran Pct Auto 0.2 % (0.0-0.4); Lymphocytes Absolute Auto 1.6 X10*3/uL (1.2-4.9); Mean Corpuscular Hemoglobin 29.9 pg (27.0-33.0); Mean Corpuscular Volume 90.5 fL (80.0-98.0); Mean Platelet Volume 9.5 fL (9.4-12.3); Monocytes Absolute Auto 0.4 X10*3/uL (0.1-1.2); Monocytes Percent Auto 9.4 % (2-11); Neutrophils Absolute Auto 2.5 x10*3/uL (2.0-8.3); Neutrophils Percent Auto 53.2 % (45-73); Platelet Count 257 X10*3/uL (160-400); Red Blood Count 4.65 X10*6/uL (4.20-5.50); Red Cell Distribution Width 12.3 % (11.0-16.0); White Blood Count 4.7 X10*3/uL (4.8-10.8)
[2022-03-11 12:04] LABS: Alanine Aminotransferase 17 U/L (0-31); Albumin Level 4.5 g/dL (3.5-5.0); Alkaline Phosphatase 76 U/L (39-117); Anion Gap 15 (12-20); Aspartate Amino Transferase 25 U/L (5-31); Bilirubin Total 0.6 mg/dL (0.0-1.0); Blood Urea Nitrogen 17 mg/dL (9-16); Calcium 9.4 mg/dL (8.4-10.2); Carbon Dioxide 22 mmol/L (22-29); Chloride 107 mmol/L (96-108); Cholesterol 207 mg/dL; Estimated Glomerular Filt Rate > 60; Glucose Fasting 95 mg/dL (60-99); HDL Cholesterol 64 mg/dL; LDL Cholesterol Calculated 121 mg/dl; Potassium 4.3 mmol/L (3.3-5.1); Sodium 140 mmol/L (135-145); Total Protein 7.2 g/dL (6.5-8.0); Triglycerides 111 mg/dL
[2022-03-11 12:10] LABS: Vitamin D 25-OH Total 45.2 ng/mL (>30)
== END 2022-03-11 09:52 | disposition home or self-care (01) ==
LOC: HO.10HDL 09:51
PROVIDERS: Visit Provider Internal Medicine
DX: E78.00 Pure hypercholesterolemia, unspecified (principal); K21.9 Gastro-esophageal reflux disease without esophagitis; M81.0 Age-related osteoporosis without current pathological fracture
CPT/HCPCS: 36415; 80053; 80061; 82306; 85025

== ENCOUNTER 2022-06-03 08:51 | Outpatient (REF) | payer MEDICARE, OTHER, SELFPAY ==
--- NOTE | ~2022-06-03 | MM_ITS ---
EXAMINATION: MM SCREENING DIGITAL BREAST TOMOSYNTHESIS, BILATERAL CLINICAL INFORMATION: Screening. Asymptomatic. The lifetime risk of breast cancer based on the Tyrer-Cuzick Model is 2%. COMPARISON: Mammography: 05/27/2021, 04/28/2020, 02/20/2018. TECHNIQUE: Digital breast tomosynthesis is performed in both the craniocaudal and mediolateral oblique views along with computer-aided detection (CAD). Synthesized 2D images are generated from the tomosynthesis. FINDINGS: There are scattered areas of fibroglandular density (ACR BI-RADS breast composition Category b). There are no significant masses, abnormal calcifications, or other abnormalities. Parenchymal pattern is similar to prior studies. There is no developing density or architectural abnormality. The axilla are unremarkable. Again, there is incidental dermal lesion overlying the posterior outer right breast. No significant changes from prior studies. MM/MM tomosynthesis screening BI IMPRESSION: No mammographic evidence of malignancy. ASSESSMENT: BI-RADS 2: Benign RECOMMENDATION: Routine annual mammography screening. This patient's information was entered into a reminder system with a target due date for their next mammogram.
== END 2022-06-03 08:52 | disposition home or self-care (01) ==
LOC: HO.MAMMO 08:51
PROVIDERS: Visit Provider Internal Medicine
DX: Z12.31 Encounter for screening mammogram for malignant neoplasm of breast (principal)
CPT/HCPCS: 77063; 77067

== ENCOUNTER 2023-10-02 08:32 | Outpatient (REF) | payer MEDICARE, OTHER, SELFPAY ==
[2023-10-02 11:14] LABS: MANUAL DIFF FLAG NO
[2023-10-02 11:24] LABS: Basophils Percent Auto 0.8 % (0-2); Eosinophils Absolute Auto 0.1 X10*3/uL (0.0-0.4); Eosinophils Percent Auto 3.4 % (0-4); Hematocrit 41.1 % (37.0-47.0); Hemoglobin 13.6 g/dl (12.0-16.0); Imm Gran Abs Auto 0.01 X10*3/uL (0.00-0.03); Imm Gran Pct Auto 0.3 % (0.0-0.4); Lymphocytes Absolute Auto 1.1 X10*3/uL (1.2-4.9); Lymphocytes Percent Auto 31.9 % (20-40); Mean Corpuscular HGB Conc 33.1 g/dl (31.0-35.0); Mean Corpuscular Hemoglobin 29.2 pg (27.0-33.0); Mean Corpuscular Volume 88.4 fL (80.0-98.0); Mean Platelet Volume 9.5 fL (9.4-12.3); Monocytes Absolute Auto 0.4 X10*3/uL (0.1-1.2); Monocytes Percent Auto 11.5 % (2-11); Neutrophils Absolute Auto 1.9 x10*3/uL (2.0-8.3); Neutrophils Percent Auto 52.1 % (45-73); Platelet Count 248 X10*3/uL (160-400); Red Blood Count 4.65 X10*6/uL (4.20-5.50); Red Cell Distribution Width 13.2 % (11.0-16.0); White Blood Count 3.6 X10*3/uL (4.8-10.8)
[2023-10-02 12:45] LABS: Alanine Aminotransferase 19 U/L (0-31); Albumin Level 3.9 g/dL (3.5-5.0); Alkaline Phosphatase 74 U/L (39-117); Anion Gap 15 (12-20); Aspartate Amino Transferase 25 U/L (5-31); Bilirubin Total 0.5 mg/dL (0.0-1.0); Blood Urea Nitrogen 10 mg/dL (9-16); Calcium 9.5 mg/dL (8.4-10.2); Carbon Dioxide 24 mmol/L (22-29); Chloride 109 mmol/L (96-108); Cholesterol 180 mg/dL (<200); Estimated Glomerular Filt Rate > 60; Glucose Fasting 113 mg/dL (60-99); HDL Cholesterol 69 mg/dL (>40); LDL Cholesterol Calculated 93 mg/dL (<100); Potassium 3.9 mmol/L (3.3-5.1); Sodium 144 mmol/L (135-145); Triglycerides 93 mg/dL (<150)
== END 2023-10-02 08:33 | disposition home or self-care (01) ==
LOC: HO.10HDL 08:32
PROVIDERS: Visit Provider Internal Medicine
DX: E78.00 Pure hypercholesterolemia, unspecified (principal); K21.9 Gastro-esophageal reflux disease without esophagitis; M85.80 Other specified disorders of bone density and structure, unspecified site; Z12.31 Encounter for screening mammogram for malignant neoplasm of breast
CPT/HCPCS: 36415; 77063; 77067; 80053; 80061; 82306; 85025

== ENCOUNTER → 2023-10-02 10:15 | Outpatient (BNV) | payer MEDICARE, OTHER, SELFPAY | PROVIDERS: Visit Provider Radiology Diagnostic Radiology | DX: Z12.31 Encounter for screening mammogram for malignant neoplasm of breast (principal) | CPT/HCPCS: 77063; 77067 ==

== ENCOUNTER 2023-10-19 13:10 | Outpatient (REF) | payer MEDICARE, OTHER, SELFPAY ==
[2023-10-19 14:25] LABS: Estimated Average Glucose 105 mg/dL; Hemoglobin A1C 125.4447 umol/L; Hemoglobin A1c % 5.3 % (<6.0)
== END 2023-10-19 13:11 | disposition home or self-care (01) ==
LOC: HO.LAB 13:10
PROVIDERS: PCP Internal Medicine; Visit Provider Surgery
DX: R73.9 Hyperglycemia, unspecified (principal)
CPT/HCPCS: 36415; 83036

== ENCOUNTER 2023-10-25 12:44 | Outpatient (AMB) | payer MEDICARE, OTHER, SELFPAY ==
--- NOTE | 2023-10-25 12:53 | AM.OFFWIN_ITS ---
Intake Vital Signs 3 10/25/23 12:55 Height 5 ft Weight 137 lb BMI 26.8 BP 130/78 Blood Pressure Location Lt brachial Position Sitting Pulse 90 Pulse Source Pulse Oximeter Temp 97.9 F Temp Source Temporal Artery Scan Pulse Oximetry (%) 96 Oxygen Delivery Method Room Air Intake Visit Reasons: EP Muscle spasms/Rash Back Intake Note: pt is here today for muscle spasms and rash on back started 1 month ago Patient Tobacco Use Status: Never used Tobacco Allergies nitroglycerin [NITROGLYCERIN] Allergy (Severe, Verified 10/25/23 12:53) SEVERE BRADYCARDIA/HYPOTENSION iodine Allergy (Unknown, Verified 10/25/23 12:53) Hypotension Do you need a note to return to daycare/school/sports/work: No HPI HPI Comments 2 History of Present Illness0 Details 78 y/o female patient who presents to [facility] in clinic with c/o Itchy rash on her lower back since yesterday. Pt also c/o lower back pain associated with Spasm. She has full ROM with no limitations. Denies injury or trauma, but admits to overworking herself (she cleaned her entire house Monday). Denies associating symptoms with rash. H/o Chicken Pox as a child. She is not vaccinated for Shingles. [facility] Medical History (Updated 08/31/22 @ 12:17 by Enid Terrell, [facility]) Impacted cerumen of left ear IBS (irritable bowel syndrome) Anxiety Macular degeneration Glaucoma GERD (gastroesophageal reflux disease) Hiatal hernia Surgical History History of femoral hernia repair Incarcerated femoral hernia History of reverse total replacement of right shoulder joint History of right shoulder replacement Social History Household Members: None Housing: Condominium Do you presently have visiting nurse or other home services: No Patient Tobacco Use Status: Never used Tobacco Review of Systems Const All systems reviewed & are unremarkable except as noted in HPI and below Neuro Denies Sensory deficit (Neuro) Physical Exam Vital Signs: Last Vital Signs Temp 97.9 F 10/25/23 12:55 Pulse 90 10/25/23 12:55 BP 130/78 10/25/23 12:55 Pulse Ox 96 10/25/23 12:55 Oxygen Delivery Method Room Air 10/25/23 12:55 BMI result Body Mass Index 26.8 Const General: no acute distress Orientation/consciousness: patient oriented x3 Back/Spine/Pelvis Thoracic/Lumbar Spine: thoraco-lumbar ROM normal and No lumbar spinal tenderness Skin Other: Grouped Herpetiform vesicles, erythematous base (right sided lumbar region). Rashes: rashes noted Full body images: 2 1. Grouped Herpetiform vesicles, erythematous base (right sided lumbar region). Neuro General: patient oriented x3, gait normal and no focal motor deficits Motor exam (neuro): 5/5 motor strength present throughout Sensory Exam: No Sensory deficit (Neuro) Psych Speech and movement: Normal speech and movement present Attitude: cooperative Assessment & Plan Assessment & Plan (1) Shingles: Code(s): B02.9 - Zoster without complications Qualifiers: Herpes zoster complications: without complications Qualified Code(s): B 02.9 - Zoster without complications Plan: - Exam consitent with Shingle Rash. - Prior H/o Varicella and no recent Shingle vaccination - Will start Valtrex today. Plan - Exam consitent with Shingle Rash. - Prior H/o Varicella and no recent Shingle vaccination - Will start Valtrex today. Medications: New 2 valacyclovir 1,000 mg PO BID 7 days 14 tabs 0RF B02.9 - Zoster without complications Coding Level of Care Code Est Pt Level 3 (33890) Diagnoses Herpes zoster without complication B02.9 Herpes zoster complications: without complications Time Spent (min) 15
[2023-10-25 12:55] VITALS: BP 130/78; PULSE 90; TEMP 36.6; O2SAT 96; BMI 26.8
== END 2023-10-25 13:14 | disposition home or self-care (01) ==
PROVIDERS: PCP Internal Medicine; Visit Provider Nurse Practitioner Family
DX: B02.9 Zoster without complications (principal)
CPT/HCPCS: 99213

== ENCOUNTER 2024-05-27 08:29 | Outpatient (AMB) | payer MEDICARE, OTHER, SELFPAY ==
--- NOTE | 2024-05-27 09:04 | MHC.OFFWIV ---
Intake Vital Signs 05/27/24 09:13 Height 5 ft Weight 140 lb BMI 27.3 BP 130/80 Blood Pressure Location Rt brachial Position Sitting Pulse 91 Pulse Source Pulse Oximeter Temp 97 F Temp Source Oral Pulse Oximetry (%) 98 Oxygen Delivery Method Room Air Intake Visit Reasons: ? UTI Intake Note: Patient here for lower abdominal pressure, lower back pain and headache. Patient Tobacco Use Status: Never used Tobacco Allergies nitroglycerin [NITROGLYCERIN] Allergy (Severe, Verified 05/27/24 09:12) SEVERE BRADYCARDIA/HYPOTENSION iodine Allergy (Unknown, Verified 05/27/24 09:12) Hypotension Do you need a note to return to daycare/school/sports/work: No HPI ? UTI HPI Details This note is constructed using voice recognition software. While every effort has been made to ensure accuracy, lathe hand errors may have been included. The patient is a 78 year old female who presents to the clinic today with frequency, urgency, and burning on urination for the past couple of days. She denies fever, chills. She does report a sinus headache, which she has been dealing with her allergies. The headache does resolve with her typical allergy treatment, and she mentioned it just to be thorough. [facility] Medical History (Updated 08/31/22 @ 12:17 by Enid Terrell, [facility]) Impacted cerumen of left ear IBS (irritable bowel syndrome) Anxiety Macular degeneration Glaucoma GERD (gastroesophageal reflux disease) Hiatal hernia Surgical History History of femoral hernia repair Incarcerated femoral hernia History of reverse total replacement of right shoulder joint History of right shoulder replacement Social History Household Members: None Housing: Condominium Do you presently have visiting nurse or other home services: No Patient Tobacco Use Status: Never used Tobacco Review of Systems Const All systems reviewed & are unremarkable except as noted in HPI and below Physical Exam Vital Signs: Last Vital Signs Temp 97 F 05/27/24 09:13 Pulse 91 05/27/24 09:13 BP 130/80 05/27/24 09:13 Pulse Ox 98 05/27/24 09:13 Oxygen Delivery Method Room Air 05/27/24 09:13 BMI result Body Mass Index 27.3 Const General: cooperative, healthy appearing, comfortable, no acute distress and alert Orientation/consciousness: patient oriented x3 Limitations: no limitations Resp Effort & Inspection: normal respiratory effort and able to speak in complete sentences Cardio Jugular venous distension: no JVD Palpation: normal PMI Rate: regular rate Heart sounds: S1 normal heart sound present, S2 normal heart sound present, no click, no gallops, no murmurs and no rubs General: Yes no CVA tenderness Back/Spine/Pelvis Back: no CVA tenderness Skin General skin exam: no rashes or lesions noted, elasticity normal and turgor normal Neuro General: patient oriented x3 Psych Appearance: grossly normal Mental Status: mental status grossly normal Speech and movement: Normal speech and movement present Affect: normal affect Results AMB Urinalysis, Automated UA Leukoctes 15 [place]/uL Last Edit by Quintin Bernard CCM on 05/27/24 09:19 UA Nitrite Negative Last Edit by Quintin Bernard [facility] on 05/27/24 09:19 UA Urobilinogen 0.2 mg/dL Last Edit by Quintin Bernard [facility] on 05/27/24 09:19 UA Protein 0 mg/dL Last Edit by Quintin Bernard [facility] on 05/27/24 09:19 UA pH 7.0 Last Edit by Quintin Bernard [facility] on 05/27/24 09:19 UA Blood 0 Jm/uL Last Edit by Quintin Bernard [facility] on 05/27/24 09:19 UA Specific [place] 1.005 Last Edit by Quintin Bernard CCM on 05/27/24 09:19 UA Ketone Negative Last Edit by Quintin Bernard [facility] on 05/27/24 09:19 UA Bilirubin 0 mg/dL Last Edit by Quintin Bernard [facility] on 05/27/24 09:19 UA Glucose 0 mg/dL Last Edit by Quintin Bernard [facility] on 05/27/24 09:19 Assessment & Plan Assessment & Plan (1) UTI (urinary tract infection): Code(s): N39.0 - Urinary tract infection, site not specified Qualifiers: Urinary tract infection type: acute cystitis Hematuria presence: without hematuria Qualified Code(s): N30.00 - Acute cystitis without hematuria Plan: Antibiotics sent to requested. Advised patient to take until complete. Advised patient to follow up with worsening or failure to resolve. Plan See above for full details and plan. Orders: Orders AMB Urinalysis Automated Today Z13.9 - Encounter for screening, unspecified Medications: New nitrofurantoin monohyd/m-cryst 100 mg must administer with a meal/food 100 mg PO Q12H 5 days 10 caps 0RF Coding Level of Care Code Est Pt Level 3 (04343) Diagnoses Acute cystitis without hematuria N30.00 Urinary tract infection type: acute cystitis Hematuria presence: without hematuria
[2024-05-27 09:13] VITALS: BP 130/80; PULSE 91; TEMP 36.1; O2SAT 98; BMI 27.3
== END 2024-05-27 10:15 | disposition home or self-care (01) ==
PROVIDERS: PCP Internal Medicine; Visit Provider Registered Nurse
DX: Z13.9 Encounter for screening, unspecified (principal); N30.00 Acute cystitis without hematuria

== ENCOUNTER → 2024-05-27 08:29 | Outpatient (BNVA) | payer MEDICARE, OTHER, SELFPAY | PROVIDERS: PCP Internal Medicine; Visit Provider Registered Nurse | DX: N30.00 Acute cystitis without hematuria (principal) | CPT/HCPCS: 81003; 99212 ==

== ENCOUNTER 2024-11-21 08:10 | Outpatient (AMB) | payer MEDICARE, OTHER, SELFPAY ==
[2024-11-21 08:29] VITALS: BP 130/90; PULSE 87; O2SAT 98
--- NOTE | 2024-11-21 08:29 | AM.OFFWIN_ITS ---
Intake Vital Signs 11/21/24 08:29 Weight 141 lb BP 130/90 H Blood Pressure Location Rt brachial Position Sitting Pulse 87 Pulse Source Pulse Oximeter Pulse Oximetry (%) 98 Oxygen Delivery Method Room Air Intake Visit Reasons: EP Ear flush, bilat Intake Note: Patient here for bilat ear discomfort for a while now. Patient Tobacco Use Status: Never used Tobacco Allergies nitroglycerin [NITROGLYCERIN] Allergy (Severe, Verified 11/21/24 08:30) SEVERE BRADYCARDIA/HYPOTENSION iodine Allergy (Unknown, Verified 11/21/24 08:30) Hypotension nitrofurantoin Allergy (Unverified 11/21/24 08:30) Unknown Do you need a note to return to daycare/school/sports/work: No HPI HPI Comments History of Present Illness Details 79 y/o female patient who presents to [facility] walk in clinic with c/o B/L ear discomfort and Wax blockage. She went to get Hearing Aids and was told she needed to have Wax removed first. [facility] Medical History (Updated 11/21/24 @ 09:12 by Loida Peralta NP) Hearing loss of both ears due to cerumen impaction Impacted cerumen of left ear IBS (irritable bowel syndrome) Anxiety Macular degeneration Glaucoma GERD (gastroesophageal reflux disease) Hiatal hernia Surgical History History of femoral hernia repair Incarcerated femoral hernia History of reverse total replacement of right shoulder joint History of right shoulder replacement Social History Household Members: None Housing: Condominium Do you presently have visiting nurse or other home services: No Patient Tobacco Use Status: Never used Tobacco Review of Systems Const All systems reviewed & are unremarkable except as noted in HPI and below Physical Exam Vital Signs: Last Vital Signs Pulse 87 11/21/24 08:29 BP 130/90 H 11/21/24 08:29 Pulse Ox 98 11/21/24 08:29 Oxygen Delivery Method Room Air 11/21/24 08:29 HEENT Head: Yes normocephalic Ears: external ears normal and TM abnormal obstructed by cerumen bilateral General nose exam: Normal external nose present Face and sinus: Yes sinuses nontender Mouth: moist mucous membranes Office Procedures Cerumen Removal From which ear canal was the cerumen removed: bilateral Removal: irrigation Notes: patient tolerated procedure well [id number] Irrigation/Lavage Assessment & Plan Assessment & Plan (1) Hearing loss of both ears due to cerumen impaction: Code(s): H61.23 - Impacted cerumen, bilateral Plan: Ordered Cerumen Lavage/irrigation in the office. Patient tolerated procedure well. TM clear and Intact. Coding Level of Care Code Est Pt Level 4 (62969) Diagnoses Hearing loss of both ears due to cerumen impaction H61.23 CPT Codes Office Procedure - CPT: 57084-Zfq Irrigation/Lavage ([id number]) Time Spent (min) 20
== END 2024-11-21 09:15 | disposition home or self-care (01) ==
LOC: HO.HMCWIC 08:10
PROVIDERS: PCP Internal Medicine; Visit Provider Nurse Practitioner Family
DX: H61.23 Impacted cerumen, bilateral (principal)

== ENCOUNTER → 2024-11-21 08:10 | Outpatient (BNVA) | payer MEDICARE, OTHER, SELFPAY | PROVIDERS: PCP Internal Medicine; Visit Provider Nurse Practitioner Family | DX: H61.23 Impacted cerumen, bilateral (principal) | CPT/HCPCS: 69209; 99212 ==

== ENCOUNTER 2024-12-25 10:21 | Outpatient (AMB) | payer MEDICARE, OTHER, SELFPAY ==
[2024-12-25 09:47] VITALS: BP 128/76; PULSE 78; TEMP 36.4; O2SAT 99; BMI 27.1
--- NOTE | 2024-12-25 09:47 | MHC.PC.OV ---
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 Accompanied by: Self / Same As Patient Allergies nitroglycerin [NITROGLYCERIN] Allergy (Severe, Verified 12/25/24 09:47) SEVERE BRADYCARDIA/HYPOTENSION iodine Allergy (Unknown, Verified 12/25/24 09:47) Hypotension nitrofurantoin Allergy (Verified 12/25/24 09:47) Unknown Tobacco use date assessed: 12/25/24 Fall risk assessment: No Falls in past year Last assessed Fall Risk: 12/25/24 Dental Screening Dental Screen Date: 12/25/24 Did you have a dental visit in the last 12 months?: Yes Did you have a dental problem in the last 6 months where you did not have access to dental care?: No [facility] Medical History (Updated 12/25/24 @ 10:47 by Luis Carlos Pressley MD) Hyperlipidemia Hearing loss of both ears due to cerumen impaction Impacted cerumen of left ear IBS (irritable bowel syndrome) Anxiety Macular degeneration Glaucoma GERD (gastroesophageal reflux disease) Hiatal hernia Surgical History History of colonoscopy (~10/31/12) History of femoral hernia repair Incarcerated femoral hernia History of reverse total replacement of right shoulder joint History of right shoulder replacement Family History (Updated 12/25/24 @ 10:30 by Verónica Cardozo MA) Mother No problems noted. Father No problems noted. Social History Household Members: None Housing: Condominium Do you presently have visiting nurse or other home services: No Patient Tobacco Use Status: Never used Tobacco e-Cigarette/Vaping Use: Never Used service: No Current occupational status: retired Cognitive needs: No Hearing needs: Yes (bilateral hearing aids) Vision needs: Yes (reading glasses) Questionnaire PHQ-9 Over the last 2 weeks, how often have you been bothered by any of the following problems? 1. Little interest or pleasure in doing things: not at all 2. Feeling down, depressed, or hopeless: not at all 3. Trouble falling or staying asleep, or sleeping too much: not at all 4. Feeling tired or having little energy: not at all 5. Poor appetite or overeating: not at all 6. Feeling bad about yourself - or that you are a failure or have let yourself or your family down: not at all 7. Trouble concentrating on things, such as reading the newspaper or watching television: not at all 8. Moving or speaking so slowly that other people could have noticed. Or the opposite - being so fidgety or restless that you have been moving around a lot more than usual: not at all 9. Thoughts that you would be better off or of hurting yourself in some way: not at all Total score: 0 Source: Developed by Drs. Roman Blair, Umm Browne, Jonathan León and colleagues, with an educational yonis from [employer]. Thrive Questionnaire Date Thrive assessed: 12/25/24 I am a: Patient Within the past 12 months, did the food you bought not last and you didn't have the money to get more?: Never true Within the past 12 months, did you worry whether your food would run out before you got money to buy more?: Never true Do you have trouble paying for medicines?: No Do you have trouble getting transportation to medical appointments?: No Do you have trouble paying your heating and electricity bill?: No Do you have trouble taking care of your child, family member or friend?: No Do you have trouble with day-to-day activities such as bathing, preparing meals, shopping, managing finances, etc.?: No Are you currently unemployed and looking for a job?: No Are you interested in more education?: No THRIVE Score: 0 AUDIT C Alcohol Use Questionnaire (AUDIT-C) 1. How often do you have a drink containing alcohol?: Monthly or less 2. How many drinks containing alcohol do you have on a typical day when you are drinking?: 1 or 2 3. How often do you have six or more drinks on one occasion?: Less than monthly Total Score: 2 RAMSEY-7 AMB Questionnaire RAMSEY-7 Date RAMSEY - 7 assessed: 12/25/24 Feeling nervous, anxious, or on edge: 0 = Not at all Not being able to stop or control worryin = Not at all Worrying too much about different things: 0 = Not at all Trouble relaxin = Not at all Being so restless that it is hard to sit still: 0 = Not at all Becoming easily annoyed or irritable: 0 = Not at all Feeling afraid as if something awful might happen: 0 = Not at all Total RAMSEY-7 score (0-4 normal; 5-9 mild; 10-14 moderate; 15-21 severe): 0 Source: Developed by Drs. Roman Blair, Umm Browne, Jonathan León and colleagues, with an educational yonis from [employer]. Physical exam (Primary Care) Vital Signs: Last Vital Signs Temp 97.5 F 12/25/24 09:47 Pulse 78 12/25/24 09:47 BP 128/76 12/25/24 09:47 Pulse Ox 99 12/25/24 09:47 Oxygen Delivery Method Room Air 12/25/24 09:47 BMI result Body Mass Index 27.1 Tobacco/Smoking Status: Tobacco use Status Tobacco use date assessed 12/25/24 12/25/24 09:49 Patient Tobacco Use Status Never used Tobacco 12/25/24 09:49 e-Cigarette/Vaping Use Never Used 12/25/24 09:49 PHQ-9: PHQ-9 Score PHQ-9: Total score 0 12/25/24 10:31 Thrive Assessment: Date of Thrive Assessment Date Thrive assessed 12/25/24 12/25/24 09:49 Coding Level of Care Code New Pt Level 4 (81762) Complex EM visit Add On G2211 Diagnoses Macular degeneration H35.30 Anxiety F41.9 Hyperlipidemia E78.5 Assessment & Plan Assessment & Plan (1) Macular degeneration: Code(s): H35.30 - Unspecified macular degeneration Category: Medical Plan: Condition is stable (2) Anxiety: Code(s): F41.9 - Anxiety disorder, unspecified Category: Medical Plan: Continue clonazepam 0.5 mg twice a day. (3) Hyperlipidemia: Code(s): E78.5 - Hyperlipidemia, unspecified Category: Medical Plan: Continue the statin. Plan History of Present Illness The patient is an 79-year-old female presenting with concerns of recurring flatulence that predominantly occurs at night, specifically when she arises to use the bathroom around 3:00 to 4:00 a.m. The symptom is characterized by a burning sensation that typically resolves within 30 minutes upon administration of Gas-X. This nocturnal flatulence is not significantly impacted by food intake. She has a history of hiatal hernia, and she's questioning the effectiveness of her current omeprazole treatment. The patient also presents with a chronic history of anxiety, managed over 23 years with clonazepam. She is managing well with a half-dose (0.5 mg) taken in the morning and during instances of anxiety or sleeplessness in the afternoon or night, respectively. She is comfortable with this management regime and does not report experiencing any notable side effects. Additionally, the patient has a history of potentially elevated glucose levels, which indicate monitoring with an A1c, especially given her previous A1c reading of 5.3. However, she is not diagnosed with diabetes. The patient also reports having macular degeneration in both eyes, which limits her ability to drive at night, though it does not otherwise restrict her daily activities. 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 - Independent in daily living activities including driving during the daytime, grocery shopping, and managing finances. - Lives alone and feels safe in her home of 30 years. - Engages in leisure activities such as playing [employer], [employer] games, and reading. - Enjoys socializing with friends. - Does not feel comfortable driving at night due to macular degeneration. Review of Systems - Gastrointestinal: Reports flatulence, denies increased symptoms with food, or any belching and burping. - Neurological/Psychiatric: Reports anxiety, managed with clonazepam. - Eye: Reports macular degeneration affecting both eyes. - Endocrine/Metabolic: Denies a formal diagnosis of diabetes. Physical Exam General: Cooperative and healthy appearing Nutritional Appearance: Well nourished Orientation/consciousness: Patient oriented x3 Limitations: No limitations Head: Normal to inspection General: Appearance normal, both eyes and all related structures Neck: Normal visual inspection Chest: Normal palpation of entire chest wall Respiratory: Normal respiratory effort Neurology: Patient oriented x3 Results - Labs: History of past A1c result was 5.3 as reported by patient, prior blood glucose readings mentioned at 113 or 120. Plan 1. Flatulence - Continue the use of Gas-X as needed; evaluate current omeprazole regimen. 2. Anxiety - Maintain current clonazepam regimen; patient monitors anxiety levels and adjusts intake accordingly. 3. Macular Degeneration - Condition is stable; driving at night to be avoided. 4. Potential Elevated Blood Glucose Levels - Obtain an A1c test to ensure blood glucose levels remain within normal range. Discussion Notes I discussed with the patient the management and treatment of her flatulence, emphasizing the continued use of Gas-X and the possible need to adjust her omeprazole dose if her current symptoms persist. For her anxiety, we confirmed comfort with the current dosing of clonazepam, allowing for self-adjustment based on her daily needs. Regarding her vision issues, we focused on safety concerns related to night driving due to macular degeneration. I also recommended obtaining an A1c test to monitor her blood glucose levels, given her past readings and to ensure accurate ongoing assessment. The patient agreed to the plans outlined, expressing satisfaction with her current management. Patient Instructions - Continue taking Gas-X for nighttime flatulence. - If flatulence or burning sensation persists, consider consulting about your omeprazole dose. - Continue your current clonazepam regimen for managing anxiety. - Avoid driving at night due to vision limitations. - Have your blood glucose level monitored with an A1c test as planned.
== END 2024-12-25 10:47 | disposition home or self-care (01) ==
LOC: HO.HMCHD 10:21
PROVIDERS: PCP Internal Medicine; Visit Provider Internal Medicine
DX: H35.30 Unspecified macular degeneration (principal); F41.9 Anxiety disorder, unspecified; E78.5 Hyperlipidemia, unspecified

== ENCOUNTER → 2024-12-25 10:21 | Outpatient (BNVA) | payer MEDICARE, OTHER, SELFPAY | PROVIDERS: PCP Internal Medicine; Visit Provider Internal Medicine | DX: Z13.89 Encounter for screening for other disorder (principal) | CPT/HCPCS: 99202 ==

== ENCOUNTER 2024-12-25 10:54 | Outpatient (REF) | payer MEDICARE, OTHER, SELFPAY ==
[2024-12-25 13:25] LABS: Hematocrit 41.9 % (37.0-47.0); Hemoglobin 14.2 g/dl (12.0-16.0); Mean Corpuscular HGB Conc 33.9 g/dl (31.0-35.0); Mean Corpuscular Hemoglobin 30.6 pg (27.0-33.0); Mean Corpuscular Volume 90.3 fL (80.0-98.0); Mean Platelet Volume 9.6 fL (9.4-12.3); Platelet Count 286 X10*3/uL (160-400); Red Blood Count 4.64 X10*6/uL (4.20-5.50); Red Cell Distribution Width 12.7 % (11.0-16.0); White Blood Count 4.4 X10*3/uL (4.8-10.8)
[2024-12-25 13:35] LABS: Appearance Urine Clear; Color Urine Yellow; Glucose Urine UA Negative (Negative); Leukocyte Esterase Urine Negative (Negative); Nitrite Urine Negative (Negative); PH 8.5 (5.0-9.0); Specific Gravity - Urine 1.015 (1.005-1.025); Urine Blood Negative (Negative); Urine Ketones Negative (Negative); Urine Protein Negative (Neg-Trace)
[2024-12-25 13:47] LABS: Alanine Aminotransferase 25 U/L (0-31); Albumin Level 4.5 g/dL (3.5-5.0); Alkaline Phosphatase 71 U/L (39-117); Anion Gap 12 (12-20); Aspartate Amino Transferase 33 U/L (5-31); Bilirubin Direct 0.1 mg/dL (0.0-0.5); Bilirubin Total 0.4 mg/dL (0.0-1.0); Blood Urea Nitrogen 12 mg/dL (9-16); Calcium 9.8 mg/dL (8.4-10.2); Carbon Dioxide 26 mmol/L (22-29); Chloride 106 mmol/L (96-108); Cholesterol 221 mg/dL (<200); Estimated Glomerular Filt Rate > 60; Glucose Random 113 mg/dL (60-115); HDL Cholesterol 76 mg/dL (>40); LDL Cholesterol Calculated 124 mg/dL (<100); Potassium 4.2 mmol/L (3.3-5.1); Sodium 140 mmol/L (135-145); Total Protein 7.6 g/dL (6.5-8.0); Triglycerides 105 mg/dL (<150)
[2024-12-25 14:05] LABS: Thyroid Stimulating Hormone 0.95 uIU/mL (0.32-4.0)
== END 2024-12-25 10:55 | disposition home or self-care (01) ==
LOC: HO.10HDL 10:54
PROVIDERS: Visit Provider Internal Medicine
DX: E78.5 Hyperlipidemia, unspecified (principal); F41.9 Anxiety disorder, unspecified; H35.30 Unspecified macular degeneration
CPT/HCPCS: 36415; 80048; 80061; 80076; 81003; 84443; 85027; 96127; 99202